=== PATIENT | female | born 1990 | race Caucasian/White ===

== ENCOUNTER 2025-07-05 10:11 | Emergency (ER) | payer MEDICARE, OTHER ==
[~2025-07-05] VITALS: Ht 170.2 cm; Wt 129.1 kg
[~2025-07-05 10:11] MED LIST: NORCO 5-325 TA1 EACH PO
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
[2025-07-05] MEDS ORDERED: HYDROXYZINE HCL50 MG PO (10:38)
[2025-07-05] MEDS ORDERED: MOUNJARO7.5 MG/0.5 SQ (10:38)
[2025-07-05] MEDS ORDERED: RIZATRIPTAN10 M1 PO (10:39)
[2025-07-05] MEDS ORDERED: OMEPRAZOLE20 MG PO (10:39)
[2025-07-05] MEDS ORDERED: VRAYLAR4.5 MG PO (10:40)
[2025-07-05] MEDS ORDERED: CYCLOBENZAPRINE10 MG PO (10:40)
[2025-07-05] MEDS ORDERED: PROZAC20 MG PO (10:41)
[2025-07-05] MEDS ORDERED: CRESTOR40 MG NG (10:42)
[2025-07-05] MEDS ORDERED: METFORMIN HCL500 MG PO (10:42)
[2025-07-05] MEDS ORDERED: ZANAFLEX2 M1 PO (10:43)
[2025-07-05 10:55] LABS: BASOPHILS 0.2 % (0.1-1.2); EOSINOPHILS 0.4 % (0.7-5.8); LYMPHOCYTES 10.9 % (19.3-51.7); MCH 28.0 PG (25.6-32.2); MCHC 33.4 g/dL (32.2-35.5); MCV 83.9 fL (79.4-94.8); MONOCYTES 3.1 % (4.7-12.5); NEUTROPHILS 85.0 % (34.0-71.1); RBC 5.21 M/uL (3.93-5.22)
[2025-07-05] MEDS ORDERED: SODIUM CHLORIDE 0.9% 1,000 ML IV ONE (11:00)
[2025-07-05 11:11] LABS: ALT (SGPT) 37.0 U/L (14-59); AST (SGOT) 19.0 U/L (15-37); GLOMERULAR FILTRATION RATE,EST 83.0 mL/min (>60); PROTEIN, TOTAL 7.9 g/dL (6.4-8.2); UREA NITROGEN 14.0 mg/dL (7-18)
[2025-07-05] MEDS ORDERED: ONDANSETRON ODT4 MG PO (11:52)
[2025-07-05 12:11] VITALS: BP 131/62
== END 2025-07-05 12:12 | disposition home or self-care (01) ==
LOC: ED 10:11
PROVIDERS: Emergency Medicine
DX: K52.9 Noninfective gastroenteritis and colitis, unspecified (principal); E78.00 Pure hypercholesterolemia, unspecified; I10 Essential (primary) hypertension; J45.909 Unspecified asthma, uncomplicated; F17.200 Nicotine dependence, unspecified, uncomplicated; Z79.84 Long term (current) use of oral hypoglycemic drugs; Z79.899 Other long term (current) drug therapy; Z88.2 Allergy status to sulfonamides; Z88.8 Allergy status to other drugs, medicaments and biological substances
CPT/HCPCS: 36415; 80053; 81001; 85025; 96374; 99284-25; J2405; J7030